=== PATIENT | male | born 1985 | race Native Hawaiian/Other Pacific Islander ===

== ENCOUNTER 2022-01-11 10:52 | Emergency (ER) | payer OTHER ==
[~2022-01-11] VITALS: Ht 180.3 cm; Wt 104.3 kg
[2022-01-11 12:37] VITALS: BP 120/63; TEMP 98.3
== END 2022-01-11 12:37 | disposition home or self-care (01) ==
LOC: ED 10:52
DX: R56.9 Unspecified convulsions (principal)
CPT/HCPCS: 96365; 99284; J1953